=== PATIENT | female | born 2000 | race Caucasian/White ===

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

== ENCOUNTER 2021-08-11 13:05 | Emergency (ER) | payer BC, MEDICAID ==
[2021-08-11] MEDS ORDERED: Ketorolac 0.5% Ophth Soln 5 ML Bottle EYELF ONE (13:24)
[2021-08-11] MEDS ORDERED: Ciprofloxacin 0.3% Ophth Soln 5 ML Bottle EYELF ONE (13:25)
== END 2021-08-11 13:56 | disposition home or self-care (01) ==
LOC: JD.ED 13:05
DX: H18.822 Corneal disorder due to contact lens, left eye (principal)
CPT/HCPCS: 99283; A9270